=== PATIENT | female | born 2000 | race Hispanic/Latino ===

== ENCOUNTER 2022-07-11 14:33 | Emergency (ER) | payer OTHER ==
[~2022-07-11] VITALS: Ht 157.5 cm; Wt 64.0 kg
[2022-07-11 16:08] LABS: APPEARANCE,URINE CLEAR (CLEAR); BILIRUBIN,URINE NEGATIVE (NEGATIVE); COLOR,URINE YELLOW (YELLOW); GLUCOSE, URINE (UA) NEGATIVE (NEGATIVE); KETONES,URINE NEGATIVE (NEGATIVE); LEUKOCYTE ESTERASE ,URINE NEGATIVE Leu/uL (NEGATIVE); NITRATE,URINE NEGATIVE (NEGATIVE); OCCULT BLOOD,URINE NEGATIVE (NEGATIVE); PH,URINE 5.5 (5.0-8.0); PROTEIN,URINE NEGATIVE (NEGATIVE); UROBILINOGEN,URINE 0.2 mg/dL (0.2-1.0)
[2022-07-11 16:12] LABS: HCG,QUALITATIVE URINE NEGATIVE (NEGATIVE)
[2022-07-11 16:33] LABS: BACTERIA,URINE Few /HPF (None Seen); MUCUS,URINE Few LPF (None Seen); SQUAMOUS EPITHELIAL CELL,UR Few /HPF (0-2)
[2022-07-11 16:42] LABS: BASOPHILS % (AUTO) 0.7 % (0.0-5.0); EOSINOPHILS % (AUTO) 0.7 % (0.0-8.0); HEMATOCRIT 42.6 % (36-48); MEAN CORPUSCULAR HGB CONC 32.9 g/dL (32.0-36.0); MEAN CORPUSCULAR VOLUME 88.2 fL (79-99); MONOCYTES % (AUTO) 7.7 % (3.0-13.0); NEUTROPHILS % (AUTO) 68.4 % (40.0-77.0); PLATELET COUNT (AUTO) 245 K/uL (130-400); RED BLOOD CELL COUNT(AUTO) 4.83 MIL/uL (4.00-5.50); RED CELL DISTRIBUTION WIDTH 13.2 % (11.0-15.5); WHITE BLOOD COUNT (AUTO) 6.1 K/uL (4.8-10.8)
[2022-07-11 17:32] LABS: ALBUMIN 4.6 g/dL (3.5-5.0); THYROID STIMULATING HORMONE 1.23 uIU/mL (0.36-3.74); TOTAL PROTEIN, SERUM 8.9 g/dL (6.0-8.3)
[2022-07-11 18:16] LABS: ERYTHROCYTE SEDIMENTATION RATE 7 MM/HR (0-20)
[2022-07-11 19:11] VITALS: BP 115/65
== END 2022-07-11 19:25 | disposition home or self-care (01) ==
LOC: EDH 14:33
DX: R60.0 Localized edema (principal)
CPT/HCPCS: 36415; 74176; 80053; 81001; 81025; 83970; 84443; 85025; 85651